=== PATIENT | female | born 1965 | race Caucasian/White ===

== ENCOUNTER 2023-02-04 16:53 | Emergency (ER) | payer SELFPAY ==
[~2023-02-04] VITALS: Ht 152.4 cm; Wt 77.1 kg
[~2023-02-04 16:53] MED LIST: AMOX500 PO; CEPH500 PO; CIPR500 PO; HYDACE5 PO; LEVFLO500 PO; OXYACE5T PO; PROM25 PO; RANI150 PO; RXOXYACE PO; RXPROM25 PO; TRAM50 PO
[2023-02-04 17:36] LABS: BASOPHILS ABSOLUTE AUTO 0.06 K/mm3 (0.00-0.23); BASOPHILS PERCENT AUTO 0 % (0-2); EOSINOPHILS ABSOLUTE AUTO 0.07 K/mm3 (0.00-0.68); EOSINOPHILS PERCENT AUTO 0 % (0-6); Hematocrit 42.8 % (33.0-51.0); Hemoglobin 14.2 g/dL (11.5-16.0); IMMATURE GRAN ABSOLUTE AUTO 0.16 K/mm3 (0.00-0.10); IMMATURE GRAN PERCENT AUTO 1 % (0-1); LYMPHOCYTES ABSOLUTE AUTO 0.72 K/mm3 (0.84-5.20); LYMPHOCYTES PERCENT AUTO 3 % (21-46); MONOCYTES ABSOLUTE AUTO 0.95 K/mm3 (0.16-1.47); MONOCYTES PERCENT AUTO 4 % (4-13); Mean Corpuscular HGB 31.3 pg (26.0-34.0); Mean Corpuscular HGB Conc 33.2 g/dL (31.5-36.5); Mean Corpuscular Volume 94 fL (80-100); Mean Platelet Volume 10.2 fL (9.1-12.4); NEUTROPHILS ABSOLUTE AUTO 23.54 K/mm3 (1.96-9.15); NEUTROPHILS PERCENT AUTO 92 % (41-73); Platelet Count 271 K/mm3 (150-400); RDW Standard Deviation 44.9 fL (35.1-46.3); Red Blood Cell Count 4.54 M/mm3 (3.80-5.20)
[2023-02-04 18:00] LABS: Albumin, Blood 3.4 g/dL (3.4-5.0); Albumin/Globulin Ratio 0.7 (0.8-1.8); Bilirubin, Total 0.6 mg/dL (0.1-1.0); Bun/Creatinine Ratio 13.9 (12.0-20.0); Calcium, Blood 10.2 mg/dL (8.5-10.1); Creatinine, Blood 1.58 mg/dL (0.40-1.00); Globulin, Blood 4.8 g/dL (2.2-4.0); Potassium, Blood 3.7 mmol/L (3.5-5.5); Total Protein, Blood 8.2 g/dL (6.4-8.2)
[2023-02-04 19:11] LABS: Source, Urine Clean Catch
[2023-02-04 19:17] LABS: Appearance, Urine Hazy (Clear); Bilirubin, Urine Neg (Neg); Blood, Urine 2+ (Neg); Color, Urine Yellow (P-Yellow); Glucose Qualitative, Urine Neg (Neg); Ketones, Urine Neg (Neg); Leukocyte Esterase, Urine 3+ (Neg); Nitrite, Urine Neg (Neg); Protein, Urine 2+ (Neg); Urobilinogen, Urine NORM (Normal)
[2023-02-04 19:28] LABS: Bacteria Many /hpf; Squamous Epithelial Cells Mod /hpf (Few); White Blood Cells, Urine 25-50 /hpf (0-5)
[2023-02-04 19:29] LABS: Transitional Epithelial Cells Rare /hpf (0-Rare)
[2023-02-05 01:01] LABS: Source, Urine Straight Cath
[2023-02-05 01:21] VITALS: BP 107/77
[2023-02-05 01:47] LABS: Appearance, Urine Hazy (Clear); Bilirubin, Urine Neg (Neg); Blood, Urine 4+ (Neg); Color, Urine Yellow (P-Yellow); Glucose Qualitative, Urine Neg (Neg); Ketones, Urine Neg (Neg); Leukocyte Esterase, Urine 2+ (Neg); Nitrite, Urine Neg (Neg); Protein, Urine 2+ (Neg); Urobilinogen, Urine NORM (Normal)
[2023-02-05 01:49] LABS: Bacteria Many /hpf; Red Blood Cells, Urine 0-2 /hpf (0-2); Squamous Epithelial Cells Mod /hpf (Few); White Blood Cells, Urine 0-2 /hpf (0-5)
== END 2023-02-05 04:15 | disposition short-term general hospital (02) ==
LOC: ER 16:53
PROVIDERS: Emergency Medicine; Physician Assistant
DX: N13.2 Hydronephrosis with renal and ureteral calculous obstruction (principal); E86.0 Dehydration; D72.829 Elevated white blood cell count, unspecified; N17.9 Acute kidney failure, unspecified; F17.200 Nicotine dependence, unspecified, uncomplicated
CPT/HCPCS: 36415; 74177; 80053; 81001; 83605; 83690; 85025; 87040; 87077; 87086; 87147; 87186; 96361; 96365; 96375; 99285-25; A9270; J0696; J1885; J2270; J2405; J7030; Q9967

== ENCOUNTER → 2024-11-07 | Outpatient (CLI) | payer BC, OTHER | LOC: LAB SHORT 11:49 → LAB 11:49 | DX: R82.998 Other abnormal findings in urine (principal) | CPT/HCPCS: 87077; 87086; 87186 ==

== ENCOUNTER 2024-12-31 13:09 | Day surgery (SDC) | payer BC, OTHER ==
[~2024-12-31] VITALS: Ht 152.4 cm; Wt 75.3 kg
[~2024-12-31 13:09] MED LIST changes: +FentaNYL Citrate 50 MCG/ML 2 ML Injection ONE; +Lidocaine HCl 2% Jelly 120MG/6ML SYR (20MG PER ML) ONE; +Midazolam HCl 1MG / ML 2ML Vial ONE
[2024-12-31] MEDS ORDERED: MULVITA PO (13:22)
[2024-12-31 13:29] VITALS: BP 127/90
--- NOTE | 2024-12-31 13:37 | NUR ---
Ambulatory in Day Surgery. History, Chart, Medications and Allergies reviewed before start of procedure. Patient confirms NPO status and agrees with scheduled surgery. Pt reports having black coffee at 0700 this morning, Dr Jordan with Anesthesia aware and okay to proceed. Pre-Op teaching done. Pt verbalizes understanding. Patient States Post-Procedure ride home has been arranged. Pt belongings placed underneath [employer] for safekeeping. Pt partials taken out and given to Rubén. Pt glasses removed and placed in case in belonging bag underneath [employer] for safekeeping.
[2024-12-31] MEDS ORDERED: Ondansetron HCl 2 MG / ML 2ML Vial IV PRN (13:40)
[2024-12-31] MEDS ORDERED: HYDROmorphone HCl/Pf 1MG SYR IV PRN (13:40)
[2024-12-31] MEDS ORDERED: FentaNYL Citrate 50 MCG/ML 2 ML Injection IV PRN ×2 (13:40)
[2024-12-31] MEDS ORDERED: Dexamethasone Sod Phos 10 MG/ML 1ML VIAL ONE (14:00)
[2024-12-31] MEDS ORDERED: Ondansetron HCl 2 MG / ML 2ML Vial ONE (14:00)
[2024-12-31] MEDS ORDERED: Ketorolac Tromethamine 30mg Vial ONE (14:01)
[2024-12-31 14:32] VITALS: BP 112/62
[2024-12-31 14:37] VITALS: BP 112/70
[2024-12-31 14:42] VITALS: BP 109/79
[2024-12-31 14:47] VITALS: BP 133/93
[2024-12-31 14:52] VITALS: BP 131/81
--- NOTE | 2024-12-31 15:52 | NUR ---
PT DOING WELL VSS DISCHRGE INSTRUCTIONS GIVEN PATIENT MEDICATED WITH TYLENOL AND OXYCODONE PRIOR TO D/C PER PHYSICIAN ORDERS Patient States Post-Procedure ride home has been arranged. Discharged via wheelchair to private car for ride home. Discharge instructions reviewed with patient. Patient verbalizes understanding. Copy given to patient to take home.
== END 2024-12-31 23:00 | disposition home or self-care (01) ==
LOC: ORSCMMR 13:09 → ORD 15:00 → ORSCMMR 23:00
PROVIDERS: Obstetrics & Gynecology
PROC: 0UB98ZZ Excision of Uterus, Via Natural or Artificial Opening Endoscopic (ICD-10-PCS; principal; 2024-12-31 14:00)
PROC: 0UDB8ZX Extraction of Endometrium, Via Natural or Artificial Opening Endoscopic, Diagnostic (ICD-10-PCS; principal; 2024-12-31 14:00)
DX: N95.0 Postmenopausal bleeding (principal); N84.0 Polyp of corpus uteri; E78.5 Hyperlipidemia, unspecified; K21.9 Gastro-esophageal reflux disease without esophagitis; F41.8 Other specified anxiety disorders; Z87.891 Personal history of nicotine dependence
CPT/HCPCS: 88305; A9270; J1100; J1885; J2250; J2405; J2704; J3010; J7120